=== PATIENT | male | born 1985 | race Two or more races ===

== ENCOUNTER 2019-03-26 15:42 | Emergency (ER) | payer SELFPAY ==
[~2019-03-26] VITALS: Ht 175.3 cm; Wt 79.4 kg
[2019-03-26 16:51] LABS: BASOPHILS # (AUTO) 0.1 K/uL (0.0-8.0); BASOPHILS % (AUTO) 1.1 % (0.0-2.0); EOSINOPHILS % (AUTO) 0.1 % (0.0-7.0); HEMATOCRIT 48.7 % (36.7-47.1); HEMOGLOBIN 16.1 g/dL (12.5-16.3); LYMPHOCYTES # (AUTO) 2.2 K/uL (20.0-40.0); LYMPHOCYTES % (AUTO) 31.3 % (20.5-51.5); MEAN CORPUSCULAR HEMOGLOBIN 30.6 uug (23.8-33.4); MEAN CORPUSCULAR HGB CONC 33 g/dL (32.5-36.3); MEAN CORPUSCULAR VOLUME 92.1 fL (73.0-96.2); MONOCYTES # (AUTO) 0.3 K/uL (2.0-10.0); NEUTROPHILS # (AUTO) 4.4 K/uL (1.8-8.9); NEUTROPHILS % (AUTO) 63.5 % (38.5-71.5); PLATELET COUNT (AUTO) 241 K/uL (152-348); RED BLOOD CELL COUNT(AUTO) 5.28 MIL/uL (4.06-5.63)
[2019-03-26 17:01] LABS: CARBON DIOXIDE 24 mmol/L (21-32); CHLORIDE 103 mmol/L (98-107); CREATININE 0.9 mg/dL (0.6-1.3); GLUCOSE 89 mg/dL (74-106); POTASSIUM 3.6 mmol/L (3.5-5.1); UREA NITROGEN, BLOOD 11 mg/dL (7-18)
[2019-03-26 17:09] LABS: ACETAMINOPHEN < 2.0 ug/mL (10-30); ETHANOL 470 MG/DL (0-0)
[2019-03-26 17:17] LABS: *AMPHETAMINE, URINE NEGATIVE (NEGATIVE); *BARBITURATE, URINE NEGATIVE (NEGATIVE); *CANNABINOID, URINE POSITIVE (NEGATIVE); *COCCAINE, URINE NEGATIVE (NEGATIVE); *OPIATE, URINE NEGATIVE (NEGATIVE); *PHENCYCLIDINE SCREEN,URINE NEGATIVE (NEGATIVE)
--- NOTE | 2019-03-26 18:35 | NUR ---
Patient discharged to home in stable conditon. Written and verbal after care instructions given. Patient verbalizes understanding of instructions. Patient able to ambulate straight without any assistance. A/Ox4. ERMD okay'd to dc. Instructed patient that he is not allowed to drive, patient will taking ride share.
[2019-03-26 18:36] VITALS: BP 135/62
== END 2019-03-26 18:37 | disposition home or self-care (01) ==
LOC: ER 15:44
DX: F10.129 Alcohol abuse with intoxication, unspecified (principal); Y90.8 Blood alcohol level of 240 mg/100 ml or more
CPT/HCPCS: 36415; 80048; 80307; 85025; 93005; 99284; G0480 ×2; G0481; A4663; C1758

== ENCOUNTER 2019-03-27 12:52 | Emergency (ER) | payer SELFPAY ==
[~2019-03-27] VITALS: Ht 167.6 cm; Wt 83.9 kg
--- NOTE | 2019-03-27 12:56 | NUR ---
Patient BIBA - AMS due to ETOH. Patient able to answer most questions in triage.
--- NOTE | 2019-03-27 13:00 | NUR ---
Patient ambulated to bathroom with steady gait.
--- NOTE | 2019-03-27 13:16 | NUR ---
Patient ambulated to Nursing station with steady gait- Speaking coherently- states " I want to leave" Patient states he will walk to desired Destination of [facility] -
== END 2019-03-27 13:19 | disposition left against medical advice (07) ==
LOC: ER 12:54
DX: Z53.21 Procedure and treatment not carried out due to patient leaving prior to being seen by health care provider (principal)
CPT/HCPCS: A4663

== ENCOUNTER 2021-07-19 19:32 | Emergency (ER) | payer MEDICAID ==
[~2021-07-19] VITALS: Ht 175.3 cm; Wt 79.4 kg
--- NOTE | 2021-07-19 19:53 | NUR ---
pt with steady gait with partial assist, pt assisted to the bathroom. Provided a urine sample informed Dr. Ro. pt in room 2b.
[2021-07-19] MEDS ORDERED: THIAMINE HCL 100 MG TABLET PO ONE (20:00)
[2021-07-19 20:07] LABS: *BILIRUBIN,URIN NEGATIVE (NEGATIVE); *BLOOD, URINE NEGATIVE (NEGATIVE); *CLARITY,URINE CLEAR (CLEAR); *COLOR,URINE YELLOW (YELLOW); *KETONES,URINE NEGATIVE (NEGATIVE); *UROBILINOGEN,URINE 0.2 E.U./dl (NORMAL); LEUKOCYTE ESTERASE ,URINE TRACE (NEGATIVE); NITRITE, URINE NEGATIVE (NEGATIVE); UGLUCOSE NEGATIVE (NEGATIVE)
[2021-07-19 20:12] LABS: HEMATOCRIT 39.1 % (36.7-47.1); MEAN CORPUSCULAR HEMOGLOBIN 30.3 uug (23.8-33.4); MEAN CORPUSCULAR VOLUME 90.9 fL (73.0-96.2); PLATELET COUNT (AUTO) 272 K/uL (152-348)
[2021-07-19 20:14] LABS: BACTERIA,URINE NONE SEEN /HPF (NONE SEEN); RBC,URINE NONE SEEN /HPF (0-3); SQUAMOUS EPITHELIAL CELL,UR NONE SEEN /HPF (NONE SEEN); WBC,URINE 0-3 /HPF (0-3)
[2021-07-19 20:25] LABS: CARBON DIOXIDE 29 mmol/L (21-32); CHLORIDE 106 mmol/L (98-107); CREATININE 0.9 mg/dL (0.6-1.3); GLUCOSE 118 mg/dL (74-106); POTASSIUM 3.6 mmol/L (3.5-5.1); UREA NITROGEN, BLOOD 8 mg/dL (7-18)
[2021-07-19 20:27] LABS: *AMPHETAMINE, URINE NEGATIVE (NEGATIVE); *CANNABINOID, URINE NEGATIVE (NEGATIVE); *COCCAINE, URINE NEGATIVE (NEGATIVE); *OPIATE, URINE NEGATIVE (NEGATIVE); *PHENCYCLIDINE SCREEN,URINE NEGATIVE (NEGATIVE)
[2021-07-19 20:27] LABS: ETHANOL 513 MG/DL (0-0)
[2021-07-19 20:31] LABS: ACETAMINOPHEN < 2.0 ug/mL (10-30); ALANINE AMINOTRANSFERASE 116 U/L (16-63); ALKALINE PHOSPHATASE 101 U/L (50-136); ASPARTATE AMINOTRANSFERASE 98 U/L (15-37); BILIRUBIN,DIRECT 0.1 mg/dL (0.0-0.2); BILIRUBIN,TOTAL 0.2 mg/dL (0.2-1.0); TOTAL PROTEIN, SERUM 8.1 g/dL (6.4-8.2)
[2021-07-19] MEDS ORDERED: THIAMINE HCL 100 MG TABLET ONE (20:54)
--- NOTE | 2021-07-19 21:50 | NUR ---
Patient able to ambulate to bathroom with steady gait.
--- NOTE | 2021-07-19 23:59 | NUR ---
Patient asleep in bed, arousable to name.
[2021-07-20] MEDS ORDERED: CHLO25CA22 PO (03:52)
[2021-07-20] MEDS ORDERED: CHLORDIAZEPOXIDE HCL 25 MG CAPSULE PO ONE ×2 (04:00→05:30)
[2021-07-20] MEDS ORDERED: CHLORDIAZEPOXIDE HCL 25 MG CAPSULE ONE ×2 (04:37→05:19)
--- NOTE | 2021-07-20 04:46 | NUR ---
Patient is awake, alert, and talkative. Written and verbal after care instructions given. Patient verbalizes understanding of instructions. Stressed follow up or return to ER for worsening s/s.
--- NOTE | 2021-07-20 04:49 | NUR ---
Patient stated, "I want to rest first before I go home." Patient went back to sleep.
--- NOTE | 2021-07-20 05:00 | NUR ---
Patient vomited several times. NAD. Dr Jia valencia.
[2021-07-20] MEDS ORDERED: ONDANSETRON ODT 4 MG TAB.RAPDIS ONE (05:19)
--- NOTE | 2021-07-20 05:20 | NUR ---
Patient went back to sleep.
[2021-07-20] MEDS ORDERED: ONDANSETRON ODT 4 MG TAB.RAPDIS SL ONE (05:30)
--- NOTE | 2021-07-20 05:44 | NUR ---
[facility] Yu for patient's transportation to home ETA 20mins-1 hour. Patient discharged to home via taxi in stable condition. No emesis nor nausea noted. VSS. NAD. Addendum: 07/20/21 at 0548 by PROSPER Handed taxi voucher to patient. [facility] V[facility] [id number], account no. [id number].
--- NOTE | 2021-07-20 05:50 | NUR ---
Patient left without waiting for taxi. Taxi voucher returned to nursing supervisor machine setter TRAY Paredes.
[2021-07-20 06:12] VITALS: BP 120/70
== END 2021-07-20 05:50 | disposition home or self-care (01) ==
LOC: ER 19:33
DX: F10.221 Alcohol dependence with intoxication delirium (principal); Y90.8 Blood alcohol level of 240 mg/100 ml or more; R74.01 Elevation of levels of liver transaminase levels; I45.10 Unspecified right bundle-branch block; F31.9 Bipolar disorder, unspecified; Z59.00 Homelessness unspecified; R94.31 Abnormal electrocardiogram [ECG] [EKG]
CPT/HCPCS: 36415; 85025; 93005; A4663; G0480; Q0162

== ENCOUNTER 2021-07-20 13:26 | Emergency (ER) | payer MEDICAID ==
[~2021-07-20] VITALS: Ht 182.9 cm; Wt 90.7 kg
[~2021-07-20 13:26] MED LIST: CHLO25CA22 PO
[2021-07-20 14:05] LABS: MEAN CORPUSCULAR HEMOGLOBIN 30.7 uug (23.8-33.4); MEAN CORPUSCULAR VOLUME 91.3 fL (73.0-96.2); PLATELET COUNT (AUTO) 281 K/uL (152-348)
[2021-07-20 14:13] LABS: CARBON DIOXIDE 31 mmol/L (21-32); CHLORIDE 106 mmol/L (98-107); GLUCOSE 121 mg/dL (74-106); POTASSIUM 3.6 mmol/L (3.5-5.1); UREA NITROGEN, BLOOD 10 mg/dL (7-18)
[2021-07-20 14:21] LABS: ALANINE AMINOTRANSFERASE 132 U/L (16-63); ALKALINE PHOSPHATASE 109 U/L (50-136); ASPARTATE AMINOTRANSFERASE 117 U/L (15-37); BILIRUBIN,DIRECT 0.1 mg/dL (0.0-0.2); BILIRUBIN,TOTAL 0.2 mg/dL (0.2-1.0); TOTAL PROTEIN, SERUM 8.5 g/dL (6.4-8.2)
[2021-07-20 14:26] LABS: THYROID STIMULATING HORMONE 0.966 mIU/mL (0.358-3.740)
[2021-07-20 14:30] LABS: ACETAMINOPHEN < 2.0 ug/mL (10-30)
[2021-07-20 14:35] LABS: ETHANOL 564 MG/DL (0-0)
--- NOTE | 2021-07-20 15:18 | NUR ---
inserted urinary catheter using aseptic technique, removed catheter after bladder was drained (approx 900cc). Urine sample taken to lab.
[2021-07-20 15:35] LABS: *BILIRUBIN,URIN NEGATIVE (NEGATIVE); *CLARITY,URINE CLEAR (CLEAR); *COLOR,URINE YELLOW (YELLOW); *KETONES,URINE NEGATIVE (NEGATIVE); *UROBILINOGEN,URINE 0.2 E.U./dl (NORMAL); LEUKOCYTE ESTERASE ,URINE NEGATIVE (NEGATIVE); NITRITE, URINE NEGATIVE (NEGATIVE); UGLUCOSE NEGATIVE (NEGATIVE)
[2021-07-20 15:37] LABS: *BLOOD, URINE TRACE (NEGATIVE)
[2021-07-20 15:45] LABS: *AMPHETAMINE, URINE NEGATIVE (NEGATIVE); *CANNABINOID, URINE NEGATIVE (NEGATIVE); *COCCAINE, URINE NEGATIVE (NEGATIVE); *OPIATE, URINE NEGATIVE (NEGATIVE); *PHENCYCLIDINE SCREEN,URINE NEGATIVE (NEGATIVE)
--- NOTE | 2021-07-20 17:49 | NUR ---
Pt. sleeping in bed, no distress noted. Pt responds to painful stimuli only.
--- NOTE | 2021-07-20 18:48 | NUR ---
Pt awoke on his own, ambulated to bathroom and back to bed. Pt has no complaints, no distress noted. Gave pt large water and dinner tray.
--- NOTE | 2021-07-20 19:06 | NUR ---
RECEIVED REPORT FROM SKYLAR (REGISTRY). PT NOTED TO BE IN BED, EYES CLOSED, BREATHING EVEN AND UNLABORED. VSS.
[2021-07-20 19:21] LABS: BACTERIA,URINE NONE SEEN /HPF (NONE SEEN); RBC,URINE 0-3 /HPF (0-3); SQUAMOUS EPITHELIAL CELL,UR NONE SEEN /HPF (NONE SEEN); WBC,URINE NONE SEEN /HPF (0-3)
--- NOTE | 2021-07-20 21:23 | NUR ---
Note maryam in ED - 07/20/21 at 2156 by AMRITA Patient discharged to home in stable condition. Written and verbal after care instructions given. Patient verbalizes understanding of instructions. Stressed follow up or return to ER for worsening s/s. PATIENT WENT HOME WITH ALL BELONGINGS ,PATIENTS BOYFRIEND CAME AND PICK HER UP . PATIENT AMBULATORY WITH [facility]UTCHES .
[2021-07-20 21:49] VITALS: BP 130/80
--- NOTE | 2021-07-20 22:35 | NUR ---
PT WOKE UP AND REQUESTED FOR WATER, OFFERED PT FLUIDS, WELL TOLERATED.
--- NOTE | 2021-07-21 01:45 | NUR ---
PT AMBULATED TO RESTROOM, STEADY GAIT. DENIES ANY PAIN/DISCOMFORT. NO CORLEY/DIZZYNESS.
[2021-07-21] MEDS ORDERED: CHLORDIAZEPOXIDE HCL 25 MG CAPSULE ONE (02:58)
[2021-07-21] MEDS ORDERED: CHLORDIAZEPOXIDE HCL 25 MG CAPSULE PO ONE (03:00)
--- NOTE | 2021-07-21 03:17 | NUR ---
PT AWAKE, RESTING COMFORTABLY IN BED, DENIES ANY PAIN/DISCOMFORT.
== END 2021-07-21 05:55 | disposition home or self-care (01) ==
LOC: ER 13:28
DX: F10.221 Alcohol dependence with intoxication delirium (principal); Y90.8 Blood alcohol level of 240 mg/100 ml or more; I51.7 Cardiomegaly; F31.9 Bipolar disorder, unspecified
CPT/HCPCS: 36415; 70450; 71045; 72125; 84443; 84484; 85025; 85730; 93005; A4663; C1758; G0480